=== PATIENT | male | born 1955 | race Caucasian/White ===

== ENCOUNTER 2018-05-07 12:55 | Emergency (ER) | payer OTHER ==
[2018-05-07 13:22] LABS: AMYLASE 36 IU/L (1-118); BASOPHIL (%) 0.7 % (0-1); BASOPHIL COUNT 0.1 K/uL (0-0.1); CHLORIDE 106 mEq/L (99-109); EOSINOPHIL (%) 2.4 % (0-5); EOSINOPHIL COUNT 0.2 K/uL (0-0.3); HEMATOCRIT 37.1 % (38.0-50.0); IMMATURE GRANULOCYTE (%) 0.4 % (0.0-0.7); LYMPHOCYTE (%) 24.8 % (15-42); LYMPHOCYTE COUNT 1.7 K/uL (1.0-2.8); MCH 31.2 PG (29.0-34.0); MONOCYTE (%) 10.1 % (3-12); MONOCYTE COUNT 0.7 K/uL (0-0.8); NEUTROPHIL (%) 61.6 % (45-76); NEUTROPHIL COUNT 4.3 K/uL (1.8-6.4); PLATELET COUNT 163 K/uL (156-360); RBC DIS.WIDTH-CV 13.2 % (11.8-14.6); RBC DIS.WIDTH-SD 42.9 % (39-53); RED BLOOD COUNT 4.17 M/uL (4.00-5.50); SODIUM 138 mEq/L (136-147); WHITE BLOOD COUNT 6.9 K/uL (4.1-10.2)
[2018-05-07 13:24] LABS: GLUCOSE 93 mg/dL (70-99)
[2018-05-07 13:27] LABS: SERUM ETHYL ALCOHOL < 10 mg/dL
[2018-05-07 13:28] LABS: CREATININE 1.1 mg/dL (0.6-1.3); UREA NITROGEN (BUN) 17 mg/dL (9-23)
[2018-05-07 13:32] LABS: GFR ESTIMATE (CALCULATED) > 59 mL/min/ (58.99-99999)
[2018-05-07 14:11] LABS: LIPASE 28 U/L (1.0-51.0)
== END 2018-05-07 15:32 | disposition home or self-care (01) ==
LOC: TRA 12:55
PROVIDERS: Emergency Medicine
DX: S40.021A Contusion of right upper arm, initial encounter (principal); R07.9 Chest pain, unspecified; W11.XXXA Fall on and from ladder, initial encounter; M25.78 Osteophyte, vertebrae; M47.892 Other spondylosis, cervical region; M48.061 Spinal stenosis, lumbar region without neurogenic claudication; G89.29 Other chronic pain; E78.5 Hyperlipidemia, unspecified; Z79.82 Long term (current) use of aspirin; Z87.891 Personal history of nicotine dependence
CPT/HCPCS: 70450; 71260; 72125; 72129; 72132; 73060; 74177; 80048; 81003; 82150; 83690; 85025; 86850; 86900; 86901; 99281; 99285; G0480; J3010